=== PATIENT | male | born 1975 | race Caucasian/White ===

== ENCOUNTER 2018-02-10 11:52 | Emergency (ER) | payer OTHER ==
[2018-02-10 11:58] VITALS: RESP 18
[2018-02-10] MEDS ORDERED: Sodium Chloride 0.9% 1,000 ML IV ONE ×2 (12:11→13:56)
--- NOTE | 2018-02-10 12:46 | C.PDOC ---
History Of Present Illness 42 year old male patient with PMHx of HTN comes into ER for evaluation for palpitations. 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 Patient reports, "had 2 episode of palpitation but was keep working for past few hours ". Pt sts, episodes self-limited, last 10-15 minutes. At present, patient denies any active complaints. Patient admits, was taking cold medication OTC for cold sx for past few days. Otherwise, Patient denies fever, chills, headache , dizziness, vertigo, neck pain, chest pain, SOB, dyspnea, palpitations , diaphoresis, abd. pain, N/V/D, back pain, UTI sx, peripheral swelling. Ambulate to Ed for evaluation, not in any apparent distress. Time Seen by Provider: 02/10/18 12:00 Chief Complaint (Nursing): Palpitations History Per: Patient History/Exam Limitations: no limitations Onset/Duration Of Symptoms: Hrs Current Symptoms Are (Timing): Gone Past Medical History Reviewed: Historical Data, Nursing Documentation, Vital Signs Vital Signs: Last Vital Signs Temp 98.6 F 02/10/18 11:55 Pulse 81 02/10/18 12:15 Resp 18 02/10/18 11:55 BP 129/88 02/10/18 12:15 Pulse Ox 96 02/10/18 13:59 - Medical History PMH: HTN - [facility] Procedures LAPAROSCOP APPENDECTOMY (07/24/14) LAPAROSCOPIC CECECTOMY (07/24/14) Family History: States: No Known Family Hx - Social History Hx Tobacco Use: No Hx Alcohol Use: No Hx Substance Use: No - Immunization History Hx Tetanus Toxoid Vaccination: No Hx Pneumococcal Vaccination: No Review Of Systems Except As Marked, All Systems Reviewed And Found Negative. Constitutional: Negative for: Fever, Chills, Sweats ENT: Negative for: Ear Discharge, Nose Discharge, Throat Pain Cardiovascular: Positive for: Palpitations. Negative for: Chest Pain Respiratory: Negative for: Cough, Shortness of Breath, Other (dyspnea) Gastrointestinal: Negative for: Nausea, Vomiting, Abdominal Pain, Diarrhea Genitourinary: Negative for: Dysuria Musculoskeletal: Negative for: Neck Pain Skin: Negative for: Rash Neurological: Negative for: Headache, Dizziness Physical Exam - Physical Exam Appears: Well, Non-toxic, No Acute Distress Skin: Normal Color, Warm, Dry, No Rash, No Ecchymosis Head: Normacephalic Eye(s): bilateral: PERRL Nose: No Flaring, No Discharge Oral Mucosa: Moist Throat: No Erythema, No Drooling Neck: Trachea Midline, No Midline Cervical Tenderness, No Paracervical Tenderness, Supple Cardiovascular: Rhythm Regular, No Murmur, No JVD, Other ((-) carotid bruits B/L ) Respiratory: No Decreased Breath Sounds, No Accessory Muscle Use, No Rales, No Rhonchi, No Stridor, No Wheezing Gastrointestinal/Abdominal: Soft, No Tenderness, No Distention, No Guarding Back: No CVA Tenderness Extremity: Normal ROM (x4), No Pedal Edema, Capillary Refill (<2 sec), No Deformity, No Swelling Neurological/Psych: Oriented x3, Normal Speech, Normal Motor, Normal Sensation, Normal Reflexes Gait: Steady ED Course And Treatment - Laboratory Results Result Diagrams: 02/10/18 12:41 02/10/18 12:41 ECG: Interpreted By Me, Viewed By Me ECG Rhythm: Sinus Rhythm Interpretation Of ECG: SR@90/min, NAD, T wave inversion in III, no acute ST-T changes O2 Sat by Pulse Oximetry: 96 (RA) Pulse Ox Interpretation: Normal - Radiology CXR: Interpreted by Me, Viewed By Me CXR Interpretation: Yes: No Acute Disease Progress Note: Impression: palpitations associated with dizziness and diaphoresis. Plan: -- EKG. -- blood work. -- CXR. -- IV fluids. -- UA. Pt was OBS in ED for 2 hours and remined asymptomatic. Reassess: On re-eval, pt is afebrile, hemodynamically stable. Non-toxic. Ambulatory in ED with stable gait. PulseOx 96% on RA. ENT: no acute findings. Uvula midline, no edema. Neck: Supple, (-) JVD, (-) carotid bruits B/L. Lungs: CTA B/L, BS equal B/L. CVS: (+)S1S2, reg, (-) murmur. Abd: benign, (-) guarding, (-) rebound , (-) localized tenderness. Back: (-) CVA tenderness. Neurologically intact. Case discussed with ED attending, blood work review, sig of mild dehydration. Troponin , D-Dimer- normal. EKG, CXR- no acute abnormalities. Repeat EKG: SR@ 60/min, NAD, no acute T wave or ST-T changes. Pt has clinical findings c/w palpitation. Pt advised and ref. to F/U with Card. for further evaluation/card stress test and tx as need. return to ED if any worsening or new changes. Disposition Counseled Patient/Family Regarding: Studies Performed, Diagnosis, Need For Followup, Rx Given - Disposition Referrals: Dallin Del Toro MD [Staff Provider] - Disposition: HOME/ ROUTINE Disposition Time: 13:57 Condition: STABLE Additional Instructions: Encourage fluids Bedrest for 1-2 days Avoid strenuous physical activity for 1-2 weeks Follow up with PMD in 1-2 days for re-evaluation. return to ED if any worsening or new changes. Instructions: Palpitations, Dehydration, Adult (DC) Forms: [employer] (Japanese), Work Excuse - Clinical Impression Clinical Impression: Palpitations, Dehydration - PA / VIDEO NEWS EDITOR / Resident Statement / has reviewed & agrees with the documentation as recorded. - Scribe Statement The provider has reviewed the documentation as recorded by the Antoine Chavez Do All medical record entries made by the Scribe were at my direction and personally dictated by me. I have reviewed the chart and agree that the record accurately reflects my personal performance of the history, physical exam, medical decision making, and the department course for this patient. I have also personally directed, reviewed, and agree with the discharge instructions and disposition.
[2018-02-10 12:52] LABS: BASO # 0.1 K/uL (0.0-0.2); BASO % 0.6 % (0.0-2.0); EOS % 0.4 % (0.0-4.0); LYMPH # 2.1 K/uL (1.0-4.3); LYMPH % 25.1 % (20.0-40.0); MEAN CELL VOLUME 82.3 fL (80.0-94.0); MEAN CORPUSCULAR HEMOGLOBIN 28.4 pg (27.0-31.0); MEAN CORPUSCULAR HGB CONC 34.5 g/dL (33.0-37.0); MEAN PLATELET VOLUME 8.5 fL (7.2-11.7); MONO # 0.6 K/uL (0.0-0.8); MONO % 7.6 % (0.0-10.0); NEUT # 5.6 K/uL (1.8-7.0); NEUT % 66.3 % (50.0-75.0); NRBC % 0.3 % (0.0-2.0); RBC 5.73 Mil/uL (4.40-5.90); RED CELL DISTRIBUTION WIDTH 13.6 % (11.5-14.5); WHITE BLOOD COUNT 8.4 K/uL (4.8-10.8)
[2018-02-10] MEDS ORDERED: Sodium Chloride 0.9% 1,000 ML ONE ×2 (12:54→14:07)
[2018-02-10 12:59] LABS: HEMOGLOBIN 16.2 g/dL (12.0-18.0)
[2018-02-10 13:04] LABS: ALB/GLOB RATIO 1.7 (1.0-2.1); ALBUMIN 5.5 g/dL (3.5-5.0); ALT/SGPT 59 U/L (21-72); AST/SGOT 37 U/L (17-59); BLOOD UREA NITROGEN 23 mg/dL (9-20); CALCIUM 10.4 mg/dl (8.6-10.4); GFR AFRICAN-AMERICAN 58; GFR NON-AFRICAN AMERICAN 48
[2018-02-10 13:07] LABS: D DIMER < 200 ng/mlDDU (0-243); INR 1.1; PARTIAL THROMBOPLASTIN TIME 35 SECONDS (21-34); PROTHROMBIN TIME 11.9 SECONDS (9.7-12.2)
[2018-02-10 13:16] LABS: B-TYPE NATRIURETIC PEPTIDE 16.8 pg/mL (0-450); CK-MB 3.09 ng/mL (0.0-3.38)
[2018-02-10 14:30] LABS: SQUAMOUS EPITHIAL 2 /hpf (0-5); URINE BACTERIA RARE (<OCC); URINE BILIRUBIN NEGATIVE (NEGATIVE); URINE BLOOD NEGATIVE (NEGATIVE); URINE CLARITY Hazy (Clear); URINE COLOR Yellow (YELLOW); URINE GLUCOSE (UA) NORMAL (Normal); URINE HYALINE CAST >20 /lpf (0-2); URINE LEUKOCYTE ESTERASE NEG Leu/uL (Negative); URINE PROTEIN 1+ mg/dL (NEGATIVE); URINE UROBILINOGEN NORMAL mg/dL (0.2-1.0)
[2018-02-10 15:17] LABS: BARBITURATES, UR NEGATIVE (NEGATIVE); BENZODIAZEPINES, UR NEGATIVE (NEGATIVE); OPIATES, UR NEGATIVE (NEGATIVE); PHENCYCLIDINE, UR NEGATIVE (NEGATIVE)
[2018-02-10 15:52] VITALS: BP 133/89; PULSE 88; TEMP 98; O2SAT 99
--- NOTE | 2018-02-14 23:56 | CARD ---
APPROVED REPORT Date of service: 02/10/2018 EKG Measurement Heart [id number] IN [id number] <Conclusion> Normal sinus rhythm Normal ECG
--- NOTE | 2018-02-15 00:12 | CARD ---
APPROVED REPORT Date of service: 02/10/2018 EKG Measurement Heart [id number] <Conclusion> Normal sinus rhythm Possible Left atrial enlargement Borderline ECG
== END 2018-02-10 15:53 | disposition home or self-care (01) ==
LOC: C.ER 11:52
DX: E86.0 Dehydration (principal); R00.2 Palpitations; I10 Essential (primary) hypertension
CPT/HCPCS: 71046; 80053; 80324; 80345; 80346; 80349; 80353; 80358; 80361; 81001; 82550; 82553; 83880; 83992; 84443; 84484; 85025; 85378; 85610; 85730; 93005; 96360; 96361; 99285; J7030